=== PATIENT | male | born 1980 | race Caucasian/White ===

== ENCOUNTER 2017-01-24 23:58 | Emergency (ER) | payer OTHER ==
[2017-01-25] MEDS ORDERED: FLUORESCEIN STRIP 1 MG/STRIP STRIP ONE (00:22)
--- NOTE | 2017-01-25 00:35 | ER PHYSICIAN DOCUMENTATION ---
Physician Documentation [facility] Name:Donte Kitchen Age:36 yrs Sex:Male :1980 Arrival Date:01/24/2017 Time:23:56 Bed4 Private MD: Rodrick Lopes Disposition: 01/25/17 00:22 Discharged to Home/Self Care. Impression: Conjunctival Abrasion. - Condition is Good. - Discharge Instructions: CORNEAL ABRASION. - Prescriptions for Keflex 500 mg Oral Capsule - take 1 capsule by ORAL route every 12 hours for 10 days; 20 capsule. Tobramycin Sulfate 0.3 % Ophthalmic Drops - instill 2 drop by OPHTHALMIC route every 4 hours; 5 milliliter. Acular 0.5 % Ophthalmic Drops - instill 1 drop by OPHTHALMIC route every 6 hours into affected eye(s); 5 milliliter. - Medical Reconciliation form form. - Follow up: Private Physician; When: As needed; Reason: Continuance of care. - Problem is new. - Symptoms have improved. - Notes: Only take the Keflex if the undereye redness gets worse. Use ice packs ALOT. HPI: 01/25 00:00 This 36 yrs old Male presents to ER via Walk In with complaints of Eye jm Swelling - Right. 00:00 The patient is experiencing pain, to the right eye, caused by an unknown mechanism. jm Onset: The symptom(s)/episode began/occurred today. Associated signs and symptoms: Pertinent negatives: headache. Historical: - Allergies: No known drug Allergies; - Tetanus: < 10 years. - Ebola Screening: : Patient negative for fever greater than or equal to 101.5 degrees Fahrenheit, and additional compatible Ebola Virus Disease symptoms. Patient denies exposure to infectious person. Patient denies travel to an Ebola-affected area in the 21 days before illness onset. No symptoms or risks identified at this time. . - Immunization history: Flu Vaccine None. - Social history: Smoking status: Patient states was never smoker of tobacco. ROS: 00:00 Constitutional: Negative for fatigue, fever. jm 00:00 Eyes: Positive for pain, sunken appearance, swelling. 00:00 Neuro: Negative for dizziness, headache. Exam: 00:00 Constitutional: The patient appears alert, awake. jm 00:00 Eyes: Periorbital structures: cellulitis, is not appreciated, erythema, that is mild, swelling, that is moderate, on the right lower eyelid, are sunken, Pupils: equal, round, and reactive to light and accomodation, Extraocular movements: intact throughout, Conjunctiva: injected, Corneas: abrasion, that is small, corneal /conjunctival boarder at 5'oclock, a fluorescein strip employed to appreciate the findings. 00:00 Neuro: Mentation: is normal, Memory: is normal. Vital Signs: 01/24 23:59 BP 161 / 100; Pulse 96; Resp 18; Temp 97.9; Pulse Ox 96% ; Weight 90.72 kg; Height 6 bw2 ft. (182.88 cm); Pain 8/10; 01/25 00:33 BP 174 / 87; Pulse 70; Resp 18; Pulse Ox 96% on R/A; bw2 01/24 23:59 Body Mass Index 27.12 (90.72 kg, 182.88 cm) bw2 MDM: 01/24 23:57 Patient medically screened. ovi 01/25 03:44 Differential diagnosis: Corneal abrasion of. Data reviewed: vital signs, nurses notes, jm and as a result, I will discharge patient. Counseling: I had a detailed discussion with the patient and/or guardian regarding: the historical points, exam findings, and any diagnostic results supporting the discharge/admit diagnosis, the need for outpatient follow up, an opthalmologist. ED course: Pt w corneal abrasion, but also the possible makings of a preseptal cellulitis. Pt given Keflex rx, but will only fill it if periorbital swelling and redness worsens. . Dispensed Medications: 00:20 Drug: Tobramycin Drops (0.3 %) 2 drops; Route: Ophthalmic; Site: right eye; bw2 00:32 Follow up: Response: No adverse reaction bw2 00:28 Drug: Fluorescein Strip 1 strip; Route: Ophthalmic; Site: right eye; bw2 00:33 Follow up: Response: No adverse reaction bw2 Signatures: Rodrick Nick MD MD jm Wisely, Beth bw2
--- NOTE | 2017-01-25 00:35 | ER NURSING DOCUMENTATION ---
Nurse's Notes [facility] Name:Donte Kitchen Age:36 yrs Sex:Male :1980 Arrival Date:01/24/2017 Time:23:56 Bed4 Private MD: Diagnosis:Conjunctival Abrasion Presentation: 01/24 23:57 Presenting complaint: Patient states: right eye pain . no vision changes or loss. bw2 Transition of care: patient was not received from another setting of care. 23:57 Acuity: RAMÍREZ 3 bw2 23:57 Method Of Arrival: Walk In 2 Triage Assessment: 23:58 General: Appears in no apparent distress, Behavior is appropriate for age. Pain: bw2 Complains of pain in right eye. EENT: Eyes swollen . Denies blurred vision photophobia. Historical: - Allergies: No known drug Allergies; - Tetanus: < 10 years. - Ebola Screening: : Patient negative for fever greater than or equal to 101.5 degrees Fahrenheit, and additional compatible Ebola Virus Disease symptoms. Patient denies exposure to infectious person. Patient denies travel to an Ebola-affected area in the 21 days before illness onset. No symptoms or risks identified at this time. . - Immunization history: Flu Vaccine None. - Social history: Smoking status: Patient states was never smoker of tobacco. Screenin:59 Infectious Disease Risk None. Abuse screen: Denies threats or abuse. Nutritional bw2 screening: No deficits noted. Assessment: 23:59 See Triage Assessment done by same RN. bw2 Vital Signs: 23:59 BP 161 / 100; Pulse 96; Resp 18; Temp 97.9; Pulse Ox 96% ; Weight 90.72 kg; Height 6 bw2 ft. (182.88 cm); Pain 8/10; 01/25 00:33 BP 174 / 87; Pulse 70; Resp 18; Pulse Ox 96% on R/A; bw2 01/24 23:59 Body Mass Index 27.12 (90.72 kg, 182.88 cm) bw2 ED Course: 01/24 23:56 Patient arrived in ED. em3 23:57 Rodrick Nick MD is Attending Physician. ovi 23:57 Margarita Foss is Primary Nurse. bw2 23:58 Triage completed. bw2 01/25 00:00 Valuables Remains with patient Patient has correct armband on for positive bw2 identification. Administered Medications: 00:20 Drug: Tobramycin Drops (0.3 %) 2 drops; Route: Ophthalmic; Site: right eye; bw2 00:32 Follow up: Response: No adverse reaction bw2 00:28 Drug: Fluorescein Strip 1 strip; Route: Ophthalmic; Site: right eye; bw2 00:33 Follow up: Response: No adverse reaction bw2 Outcome: 00:22 Discharge ordered by . ovi 00:33 Discharged to home ambulatory. bw2 00:33 Condition: good 00:33 Discharge Assessment: Patient awake, alert and oriented x 3. No cognitive and/or functional deficits noted. Patient verbalized understanding of disposition instructions. 00:33 Discharge instructions given to patient, Instructed on discharge instructions, follow up and referral plans. medication usage, Demonstrated understanding of instructions, medications, Prescriptions given X 3. 00:34 Patient left the ED. bw2 Signatures: Rodrick Nick MD MD jm Meiklejohn, Eric em3 Wisely, Beth bw2
[2017-01-25] MEDS ORDERED: TOBRAMYCIN 0.3% OPHTH 25 DROP/5 ML BTL ONE (00:43)
== END 2017-01-25 00:34 | disposition home or self-care (01) ==
LOC: ER 23:58
DX: S05.01XA Injury of conjunctiva and corneal abrasion without foreign body, right eye, initial encounter (principal); R22.0 Localized swelling, mass and lump, head
CPT/HCPCS: 99283